=== PATIENT | female | born 1950 | race Caucasian/White ===

== ENCOUNTER 2023-12-18 20:15 | Emergency (ER) | payer MEDICARE, SELFPAY ==
--- NOTE | ~2023-12-18 | CT_ITS ---
EXAMINATION: CTA chest PE abdomen pel DATE: 12/18/2023 23:35 INDICATION: cough, SOB, lightheadedness, r/o PE TECHNIQUE: Computed tomography angiography (CTA) of the chest was performed with 100 mL Omnipaque-350 intravenous contrast timed to evaluate the pulmonary arteries, followed by portal venous phase imagi ng of the abdomen and pelvis. Coronal maximum intensity projection 3D-reconstructions were created by the technologist. The dose-length product (DLP) was 563.51 mGy-cm. Automated exposure control and it erative reconstruction technique were employed. COMPARISON: 10/05/2012. FINDINGS: CHEST: Lung parenchyma and airways: Small focus of tree-in-bud opacities in the left lower lobe. Mild depend ent scarring/atelectasis. 4 mm nodule in the right upper lobe, stable, likely granuloma. Mild bilater al apical scarring. Pleura: Unremarkable. Thoracic inlet, axillae and chest wall: No thyroid or soft tissue mass. Thoracic aorta: No significant dilation. No dissection. Mild arch calcification. Mediastinum: Mild bilateral hilar lymphadenopathy. Heart and pericardium: Normal. Coronary artery calcifications: Absent. Thoracic bones: No acute osseous finding. Pulmonary arteries: Study quality: Adequate. No pulmonary emboli detected. ABDOMEN/PELVIS: Liver: Normal. Biliary/Gallbladder: Gallbladder is absent. No bile duct dilation. Pancreas: 8mm and 7 mm cystic lesions in the pancreatic body. Suggestion of hypoenhancement in the pa ncreatic head is present in the prior study and is stable, of doubtful clinical significance. Spleen: Normal. Adrenals:No mass. Kidneys: No suspicious mass, obstructing stone, or hydronephrosis. Bilateral mild urothelial enhancem ent in the collecting systems. Left parapelvic cysts. GI tract: No small or large bowel dilation. Normal appendix. Mesentery/Peritoneum: No ascites, mass, or free air. Retroperitoneum: No mass. Minimal atherosclerotic arterial calcifications. Pelvis: Pelvic organs are within normal limits. Soft Tissues: Soft tissues and body wall unremarkable. Abdominopelvic bones: No acute osseous finding. IMPRESSION: No CT evidence of acute pulmonary embolus. Small focus of tree-in-bud opacities in the left lower lobe as can be seen with atypical infection, a irways disease, and aspiration. Mild bilateral hilar lymphadenopathy. Multiple subcentimeter pancreatic cysts. Recommend imaging follow-up with contrast-enhanced MRI or pa ncreas protocol CT in 2 years. The patient is clinically jaundiced, recommend immediate EUS/FNA and s urgical evaluation. Mild bilateral renal collecting system urothelial enhancement, as can be seen with ascending infectio n. Correlate with urinalysis. Reviewed, dictated and finalized at location K. IMPRESSION: No CT evidence of acute pulmonary embolus. Small focus of tree-in-bud opacities in the left lower lobe as can be seen with atypical infection, airways disease, and aspiration. Mild bilateral hilar lymphadenopathy. Multiple subcentimeter pancreatic cysts. Recommend imaging follow-up with contr ast-enhanced MRI or pancreas protocol CT in 2 years. The patient is clinically jaundiced, recommend immediate EUS/FNA and surgical evaluation. Mild bilateral renal collecting system urothelial enhancement, as can be seen w ith ascending infection. Correlate with urinalysis.
--- NOTE | ~2023-12-18 | XR_ITS ---
EXAMINATION: XR chest 2V Exam Date/Time: 12/18/2023 21:43 CDT HISTORY: shortness of breath, COUGH Comparison: 10/05/2012. RESULT: Lines, tubes, and devices: None. Lungs and pleura: Clear. Cardiomediastinal silhouette: Stable. Other: No acute osseous or upper abdominal finding. IMPRESSION: No acute cardiopulmonary process. Reviewed, dictated and finalized at location K.
[2023-12-18 20:21] VITALS: BP 132/77; PULSE 90; RESP 24; TEMP 36.9; O2SAT 100
--- NOTE | 2023-12-18 20:24 | ECG_ITS ---
Measurements Intervals Walsh Rate: 90 P: 58 MD: 154 QRS: 32 QRSD: 87 T: 58 QT: 367 QTc: 450 Interpretive Statements SINUS RHYTHM VENTRICULAR PREMATURE COMPLEXES POSSIBLE LEFT ATRIAL ENLARGEMENT RSR' IN V1 OR V2, PROBABLY NORMAL VARIANT NONSPECIFIC ST-T WAVE ABNORMALITY- DIFFUSE LEADS BORDERLINE ECG NO PREVIOUS ECG AVAILABLE FOR COMPARISON Electronically Signed On 12-19-2023 7:28:15 CDT by Daren Worthy D.O.
[2023-12-18 21:17] VITALS: BP 114/64; PULSE 92; RESP 20; O2SAT 100
[2023-12-18 21:36] LABS: Basophils Percent Auto 0.2 % (0.2-1.2); Hematocrit 39.9 % (37.0-47.0); Hemoglobin 13.7 g/dL (12.0-15.0); Immature Granulocyte Absolute 0.03 K/mm3 (0.00-0.031); Immature Granulocyte Percent A 0.5 % (0-0.5); Lymphocytes Absolute Auto 0.42 K/mm3 (0.9-3.2); Mean Corpuscular HGB Conc 34.3 g/dl (32-36); Mean Corpuscular Hemoglobin 30.8 pg (26-34); Mean Corpuscular Volume 89.7 fl (80-100); Mean Platelet Volume 12.4 fl (7.4-10.4); Monocytes Absolute Auto 0.4 K/mm3 (0.1-0.6); Monocytes Percent Auto 6.4 % (2.6-8.5); Neutrophils Absolute Auto 5.1 K/mm3 (1.3-6.7); Neutrophils Percent Auto 85.9 % (45.5-73.1); Platelet Count Result 148 k/mm3 (150-375); Red Blood Count 4.45 M/mm3 (4.2-5.4); Red Cell Distribution Width 13.4 % (11.5-14.5)
[2023-12-18 21:39] VITALS: PULSE 82; O2SAT 99
[2023-12-18 21:51] LABS: Alanine Aminotransferase 18 U/L (6-35); Albumin Level 4.1 g/dL (3.5-5.1); Alkaline Phosphatase 87 U/L (38-126); Anion Gap 10 mmol/L (4-12); Aspartate Amino Transferase 28 U/L (14-36); Bilirubin,Total 1.3 mg/dL (0.2-1.3); Blood Urea Nitrogen 14 mg/dL (7-17); Carbon Dioxide 19 mmol/L (22-30); Chloride 104 mmol/L (98-107); Estimated CRCL calculation 43 ml/min; Estimated Glomerular Filt Rate > 60; Glucose 139 mg/dL (65-110); Lipase 101 U/L (23-300); Potassium 3.7 mmol/L (3.4-5.0); Sodium 133 mmol/L (137-145)
[2023-12-18 22:01] LABS: Troponin I < 0.012 ng/mL (0.000-0.034)
[2023-12-18] MEDS: SODIUM CHLORIDE 0.9% IV 1,000 ML 999 ML IV CONT ×2 (22:23→23:53)
--- NOTE | 2023-12-18 22:37 | ED.GENADULT ---
HPI - General Adult General Chief complaint: Shortness of Breath/Dyspnea Stated complaint: shortness of breath Time Seen by Provider: 12/18/23 21:25 Source: patient Mode of arrival: ambulatory Limitations: no limitations History of Present Illness HPI narrative: Patient is a 73-year-old female who presents the ED with report of URI symptoms. Patient reports she has been sick for the last 1 week with persistent cough, congestion, generalized weakness, intermittent lightheadedness, nausea, diarrhea, LLQ abd pain with coughing. Patient reports symptoms became worse today. She began feeling mildly short of breath and increasingly lightheaded, which prompted her presentation. Patient has taken Robitussin once for her symptoms. She denies known fevers, sick contacts, hemoptysis, lower extremity swelling, chest pain. She is not vaccinated for covid or influenza. Related Data Allergies Allergy/AdvReac Type Severity Reaction Status Date / Time bupropion Allergy Intermediate RASH TO Verified 12/18/23 20:15 ANKLES Review of Systems Review of Systems: CONSTITUTIONAL: Denies fever, chills, or sweats. ENT: See HPI. CARDIOVASCULAR: Denies chest pain, palpitations, or edema. RESPIRATORY: See HPI. GASTROINTESTINAL: See HPI. GENITOURINARY: Denies dysuria or hematuria. MUSCULOSKELETAL: Denies back pain, extremity pain, myalgia. NEUROLOGIC: See HPI. All systems reviewed & are unremarkable except as noted in HPI and below PMFSH Surgical History Surgical History History of ankle surgery Family History Family History Father Diabetes mellitus Mother Breast cancer Hypertension Sibling FH: pancreatic cancer Diabetes mellitus Grandparent Breast cancer Carcinoma of colon Grandparent Rectal cancer metastasized to bone Social History Social History Smoking status: Never smoker Alcohol intake: never Substance use: never Exam Narrative: GENERAL: Elderly, well-nourished, non-toxic, in no acute distress. HEAD: Normocephalic, atraumatic. RESPIRATORY: Airway patent, respirations nonlabored. Clear to auscultation bilaterally, no rales, rhonchi, wheezing. Hoarse quality to voice. No distress or stridor. CARDIOVASCULAR: Borderline tachycardic with regular rhythm without murmurs, rubs, or gallops. ABDOMINAL: Soft, focal tenderness to palpation in left lower abdomen, nondistended. Normoactive BS. MUSCULOSKELETAL: Moves all extremities. No gross deformities. SKIN: Warm, dry, normal color. NEURO: A&O X3. Speech clear. PSYCHIATRIC: Appropriate mood and affect. Normal interaction. Course Vital Signs Vital signs: Vital Signs Temperature 98.5 F 12/18/23 20:21 Pulse Rate 90 12/18/23 20:21 Respiratory Rate 24 H 12/18/23 20:21 Blood Pressure 132/77 12/18/23 20:21 Pulse Oximetry 100 12/18/23 20:21 Oxygen Delivery Room Air 12/18/23 20:21 Temperature 98.5 F 12/18/23 20:21 Pulse Rate 85 12/19/23 00:32 Respiratory Rate 19 12/19/23 00:32 Blood Pressure 121/67 12/19/23 00:32 Pulse Oximetry 98 12/19/23 00:32 Oxygen Delivery Room Air 12/18/23 21:39 Medical Decision Making [facility] Narrative Medical decision making narrative: Patient presented to ED with 1 week history of URI symptoms, cough, multiple viral type symptoms. Vital signs are stable upon arrival. Patient afebrile. Exam remarkable for the above. CBC with white blood cell count of 6.0. Stable H&H. CMP with bicarb of 19, sodium 133. Fluids ongoing. Stable electrolytes. Stable kidney function. Blood glucose 139. Normal LFTs and lipase. UA with 2+ ketones, small amount of blood, no evidence of infection. EKG without concerning ST changes. Troponin is undetectable. BNP within normal limits. Chest x-ray is clear. Viral s
[2023-12-18 22:40] VITALS: PULSE 80; RESP 17; O2SAT 100
[2023-12-18 22:43] LABS: NT Pro B Type Natriuretic Pept 196 pg/mL (19.9-100)
[2023-12-18 23:03] LABS: Influenza A QL RT-PCR Negative (Negative); Influenza B QL RT-PCR Negative (Negative); RSV RNA, RT-PCR Negative (Negative); SARS-CoV-2 RNA PCR Negative (Negative)
[2023-12-18 23:26] LABS: Appearance Urine Clear (Clear); Bacteria Urine None Seen /hpf; Bilirubin Urine Negative (Negative); Blood Urine Trace (Negative); Color Urine Yellow (Yellow); Glucose Urine UA Negative (Negative); Ketones Urine 3+ mg/dL (Negative); Leukocyte Esterase Ur Trace LEU/UL (Negative); Nitrate Urine Negative (Negative); Non Pathogenic Casts 0-2; Protein Urine Negative (Negative); Specific Grav Ur 1.014 (1.001-1.035); Squamous Epithelial Cell Urine None Seen /hpf (Few); WBC Urine 0-5 /hpf (0-3); pH Urine 8.5 (5.0-9.0)
[2023-12-18 23:37] LABS: Add Urine Microscopic? YES
[2023-12-19] VITALS: BP 100/86; PULSE 82; RESP 16; O2SAT 98
[2023-12-19 00:11] VITALS: PULSE 83; RESP 19; O2SAT 98
[2023-12-19 00:16] VITALS: PULSE 83; RESP 17; O2SAT 97
[2023-12-19 00:30] VITALS: PULSE 89; RESP 19; O2SAT 98
[2023-12-19 00:32] VITALS: BP 121/67; PULSE 85; RESP 19; O2SAT 98
[2023-12-19] MEDS: DOXYCYCLINE HYCLATE 100 MG TABLET PO (01:35)
[2023-12-19] MEDS: AMOXICILLIN/CLAVULANATE K 875-125 MG TAB 1 TABLET PO (01:35)
== END 2023-12-19 01:43 | disposition home or self-care (01) ==
PROVIDERS: Emergency Medicine; Emergency Provider Physician Assistant; PCP Internal Medicine
DX: J18.9 Pneumonia, unspecified organism (principal); R05.1 Acute cough; E86.0 Dehydration; K86.2 Cyst of pancreas; Z20.822 Contact with and (suspected) exposure to COVID-19; R06.02 Shortness of breath; Z28.310 Unvaccinated for COVID-19; I49.3 Ventricular premature depolarization; R94.31 Abnormal electrocardiogram [ECG] [EKG]
CPT/HCPCS: 36415; 71046; 71275; 74177; 80053; 81001; 81003; 83690; 83880; 84484; 85025; 87637; 93005; 96360; 96361; 99284; A9270; J7030; Q9967